=== PATIENT | female | born 1950 | race Caucasian/White ===

== ENCOUNTER 2021-08-21 10:13 | Emergency (ER) | payer MEDICARE ==
[~2021-08-21 10:13] MED LIST: 3IN1 COMMODE XX; ABILIFY5 MG PO; ACETAMINOPHEN325 MG PO; ASPIRIN EC81 MG PO; ASPIRIN81 MG PO; ATARAX25 MG PO; ATIVAN0.5 M1 PO; BUMEX1 MG PO; CARDIZEM CD120 MG PO; CARTIA XT120 MG PO; DIAZEPAM 5MG TAB5 MG PO; ELIQUIS2.5 MG PO; ELIQUIS5 M1 PO; ELIQUIS5 MG PO; FLUOXETINE HCL40 MG PO; K-DUR20 MEQ PO; LASIX40 MG PO; LIPITOR20 MG PO; LOPRESSOR25 MG PO; METOPROLOL ER-1 EAC1 PO; MICON-GUARD 2% TOP; NAPROXEN500 MG PO; NIFEREX150 MG PO; NORCO 5-325 TA1 EACH PO; NORCO 5/3251 EACH PO; POTASSIUM CHLO20 ME2 PO; PREDNISONE 10MG10 MG PO; PROTONIX 40MG T40 MG PO; PROZAC20 MG PO; TOPROL XL 25MG25 MG PO; ZAROXOLYN2.5 MG PO
[2021-08-21 11:05] LABS: BASOPHIL 0.4 % (0-2); EOSINOPHIL 1.5 % (0-7); HCT 47.2 % (37.0-47.0); HGB 15.3 g/dl (12.5-16.0); LYMPHOCYTE 12.6 % (15-48); MCH 29.8 pg (25.0-31.0); MCHC 32.4 g/dL (32.0-36.0); MCV 91.8 fL (78.0-100.0); MONOCYTE 6.7 % (0-12); MPV 10.6 fL (6.0-9.5); NEUTROPHIL 78.2 % (41-80); NRBC 0; PLT 145 K/uL (150-400); RBC 5.14 M/uL (4.20-5.40); RDW 15.4 % (11.5-14.0); WBC 7.2 K/uL (4.0-10.5)
[2021-08-21 11:08] LABS: ALBUMIN 3.8 g/dL (3.4-5.0); BILIRUBIN - TOTAL 1.6 mg/dL (0.2-1.0); BUN/CREAT RATIO (CALC) 15.9 RATIO; CREATININE 2.07 mg/dL (0.51-0.95); GLOBULIN (CALCULATION) 3.2 g/dL; POTASSIUM 3.9 mmol/L (3.5-5.1)
[2021-08-21 11:21] LABS: INR 1.48 (0.9-1.2); PROTHROMBIN TIME 17.2 SECONDS (11.8-13.4)
[2021-08-21 11:22] LABS: PTT 33.7 SECONDS (24.4-34.7)
[2021-08-21 11:23] LABS: D-DIMER 1.23 ug/mLFEU (0.00-0.41)
[2021-08-21 13:45] LABS: BILIRUBIN NEGATIVE (NEGATIVE); BLOOD 1+ Ery/uL (NEGATIVE); CLARITY CLEAR (CLEAR); COLOR YELLOW (YELLOW); GLUCOSE (U) NORMAL (NORMAL); LEUKOCYTES 2+ Leu/uL (NEGATIVE); NITRITE NEGATIVE (NEGATIVE); PROTEIN NEGATIVE (NEGATIVE); UROBILINOGEN 0.2 mg/dL (0.2-1.0); pH 6.5 (5.0-9.0)
[2021-08-21 13:54] LABS: BACTERIA 4+
[2021-08-21] MEDS ORDERED: CEPHALEXIN500 MG PO (15:04)
== END 2021-08-21 16:05 | disposition left against medical advice (07) ==
LOC: FER 10:13 → FMS 14:09 → FER 14:09 → FMS 16:05
PROVIDERS: Emergency Medicine
DX: R55 Syncope and collapse (principal); N39.0 Urinary tract infection, site not specified; N17.9 Acute kidney failure, unspecified; R94.31 Abnormal electrocardiogram [ECG] [EKG]; R79.1 Abnormal coagulation profile; I10 Essential (primary) hypertension; I48.91 Unspecified atrial fibrillation; Z79.899 Other long term (current) drug therapy; Z53.8 Procedure and treatment not carried out for other reasons; Z20.822 Contact with and (suspected) exposure to COVID-19
CPT/HCPCS: 36415; 70450; 71045; 78582; 80053; 81001; 83880; 84484; 85025; 85379; 85610; 85730; 87076; 87088; 87186; 93005; J0696; J7030; U0002

== ENCOUNTER 2022-01-31 12:00 | Emergency (ER) | payer MEDICARE ==
[~2022-01-31 12:00] MED LIST changes: +CEPHALEXIN500 MG PO
[2022-01-31 13:06] LABS: BASOPHIL 0.2 % (0-2); EOSINOPHIL 0.1 % (0-7); HCT 39.4 % (37.0-47.0); LYMPHOCYTE 3.6 % (15-48); MCH 32.7 pg (25.0-31.0); MONOCYTE 3.5 % (0-12); MPV 11.1 fL (6.0-9.5); NEUTROPHIL 92.1 % (41-80); NRBC 0; PLT 166 K/uL (150-400); RBC 3.98 M/uL (4.20-5.40); RDW 13.5 % (11.5-14.0); WBC 12.7 K/uL (4.0-10.5)
[2022-01-31 13:14] LABS: INR 1.64 (0.9-1.2); PROTHROMBIN TIME 18.9 SECONDS (11.9-13.9); PTT 32.9 SECONDS (24.9-34.6)
[2022-01-31 13:17] LABS: ALBUMIN 3.7 g/dL (3.4-5.0); BILIRUBIN - TOTAL 1.1 mg/dL (0.2-1.0); BUN/CREAT RATIO (CALC) 24.5 RATIO; GLOBULIN (CALCULATION) 2.9 g/dL; POTASSIUM 4.9 mmol/L (3.5-5.1); TOTAL PROTEIN 6.6 g/dL (6.4-8.2)
[2022-01-31 16:23] LABS: BILIRUBIN NEGATIVE (NEGATIVE); BLOOD 2+ Ery/uL (NEGATIVE); CLARITY CLEAR (CLEAR); COLOR YELLOW (YELLOW); GLUCOSE (U) NORMAL (NORMAL); NITRITE NEGATIVE (NEGATIVE); PROTEIN NEGATIVE (NEGATIVE); UROBILINOGEN 0.2 mg/dL (0.2-1.0); pH 5.5 (5.0-9.0)
[2022-01-31 16:24] LABS: BACTERIA TRACE; LEUKOCYTES NEGATIVE Leu/uL (NEGATIVE)
== END 2022-01-31 16:56 | disposition home or self-care (01) ==
LOC: FER 12:00
PROVIDERS: Emergency Medicine
DX: S02.2XXA Fracture of nasal bones, initial encounter for closed fracture (principal); R04.0 Epistaxis; R55 Syncope and collapse; R31.9 Hematuria, unspecified; I12.9 Hypertensive chronic kidney disease with stage 1 through stage 4 chronic kidney disease, or unspecified chronic kidney disease; N18.9 Chronic kidney disease, unspecified; I48.91 Unspecified atrial fibrillation; I25.2 Old myocardial infarction; Z79.01 Long term (current) use of anticoagulants; Z79.899 Other long term (current) drug therapy; W19.XXXA Unspecified fall, initial encounter
CPT/HCPCS: 36415; 70450; 70486; 71045; 80053; 81001; 84484; 85025; 85610; 85730; 86850; 86900; 86901; 93005